=== PATIENT | male | born 1970 | race Caucasian/White ===

== ENCOUNTER 2021-02-24 14:13 | Emergency (ER) | payer BC ==
[2021-02-24 15:42] LABS: HEMOGLOBIN 18.1 gm/dl (14.0-17.5); RED BLOOD COUNT 5.69 M/UL (4.20-5.50); WHITE BLOOD COUNT 13.4 K/UL (4.5-11.0)
[2021-02-24 16:03] LABS: BUN/CREATININE RATIO 18 (0-10)
[2021-02-24] MEDS ORDERED: ZOFRAN ODT 4 MG4 MG SL (18:21)
[2021-02-24] MEDS ORDERED: PHENERGAN 25 MG25 M1 PO (18:21)
== END 2021-02-24 19:45 | disposition home or self-care (01) ==
LOC: ER1 14:13
PROVIDERS: Physician Assistant
DX: E86.0 Dehydration (principal); R11.0 Nausea; R10.31 Right lower quadrant pain; E11.65 Type 2 diabetes mellitus with hyperglycemia; F17.200 Nicotine dependence, unspecified, uncomplicated
CPT/HCPCS: 80053; 81001; 83690; 85025; 96374; 96375; 99284; J2405; J2550; Q9967